=== PATIENT | male | born 1975 | race Caucasian/White ===

== ENCOUNTER 2020-03-06 13:29 | Emergency (ER) | payer BC ==
[~2020-03-06] VITALS: Ht 172.7 cm; Wt 106.6 kg
--- NOTE | 2020-03-06 13:40 | NUR ---
L sided weakness, neck discomfort, L eye blurring vision x couple days, Patient a/ox4, breathinge ramos and unlabored, no sob noted, needs attended, kept comfortable. NIHSS 0. no s/sx of stroke. 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
[2020-03-06 15:12] LABS: CREATININE 1.1 mg/dL (0.6-1.3)
[2020-03-06] MEDS ORDERED: IOHEXOL-350 100 ML VIAL IV ONE (15:36)
[2020-03-06] MEDS ORDERED: IV NS 0.9% 250 ML IV ONE (15:36)
[2020-03-06] MEDS ORDERED: CT SWABBABLE VALVE TRANS SET 1 EA INFUS.SET MC ONE (15:36)
--- NOTE | 2020-03-06 15:40 | NUR ---
PATIENT CAME BACK FROM CT.
--- NOTE | 2020-03-06 17:45 | NUR ---
COVID SWAB SENT. Patient a/ox4, breathing even and unlabored, no sob noted. IV removed. Catheter intact and site benign. Pressure and 4x4 applied to site. No bleeding noted.Patient discharged to home in stable condition. Written and verbal after care instructions given. Patient verbalizes understanding of instruction.
[2020-03-06 18:08] VITALS: BP 126/91
== END 2020-03-06 18:08 | disposition home or self-care (01) ==
LOC: ER 13:32
DX: M54.2 Cervicalgia (principal); G44.209 Tension-type headache, unspecified, not intractable; M54.12 Radiculopathy, cervical region; Z20.828 Contact with and (suspected) exposure to other viral communicable diseases
CPT/HCPCS: 36415; 70498; 80048; 99285; C9803; J7050; Q9967; U0003